=== PATIENT | female | born 1960 | race Two or more races ===

== ENCOUNTER 2024-06-01 15:07 | Inpatient (IN) | payer OTHER ==
[~2024-06-01] VITALS: Ht 154.9 cm; Wt 76.6 kg
[2024-06-01 15:35] LABS: Basophils # (auto) 0.1 10 ^3/uL (0-0.2); Basophils % (auto) 0.8 % (0.0-2.0); Eosinophils # (auto) 0.1 10 ^3/uL (0-0.8); Eosinophils % (auto) 1.4 % (0.0-7.0); Hematocrit 45.2 % (36.0-46.0); Hemoglobin 15.6 g/dL (12.2-16.2); Lymphocytes # (auto) 1.9 10 ^3/uL (0.4-5.4); Lymphocytes % (auto) 25.6 % (10.0-50.0); Mean Corpuscular Hgb Conc. 34.5 g/dL (32.0-36.0); Mean Corpuscular Volume 95.7 fL (80.0-100.0); Monocytes # (auto) 0.7 10 ^3/uL (0-1.3); Monocytes % (auto) 9.5 % (0.0-12.0); Neutrophils # (auto) 4.7 10 ^3/uL (1.6-8.6); Neutrophils % (auto) 62.7 % (37.0-80.0); Platelet Count (auto) 224 10^3/uL (140-450); Red Blood Cells 4.72 10^6/uL (4.0-5.20); Red Cell Distribution Width 14.5 % (11.8-14.3); White Blood Cell 7.5 10^3/uL (4.4-10.8)
[2024-06-01 15:50] VITALS: PULSE 126; RESP 13; O2SAT 93
[2024-06-01] MEDS: dilTIAZem 25 MG/5 ML VIAL IV ONE ×2 (15:53→17:12)
[2024-06-01 16:01] LABS: Alanine Aminotransferase 83 U/L (7-40); Albumin 4.7 g/dL (3.2-4.8); Alkaline Phosphatase 83 U/L (46-116); Anion Gap 8 (5-15); Aspartate Aminotransferase 33 U/L (13-40); BUN/Creatinine Ratio 15.1 (10.0-20.0); Blood Urea Nitrogen 16 mg/dL (9-23); Calcium 9.6 mg/dL (8.7-10.4); Carbon Dioxide 26 mmol/L (20-30); Chloride 110 mmol/L (98-107); Glucose 92 mg/dL (74-106); Potassium 3.9 mmol/L (3.5-5.1); Sodium 144 mmol/L (136-145)
[2024-06-01 16:02] LABS: Bilirubin, Total 0.9 mg/dL (0.2-1.0); Total Protein 6.9 g/dL (5.7-8.2)
[2024-06-01] MEDS: dilTIAZem 125mg/125ml BAG KIT 125 ML IV ONE (17:14)
[2024-06-01 18:49] LABS: Urine Bacteria FEW /hpf (None Seen); Urine Blood Negative /uL (Negative); Urine Clarity Clear (Clear); Urine Color Light-Yellow (Yellow); Urine Mucus FEW (None Seen); Urine Protein, UAD Negative (Negative); Urine Specific Gravity 1.016 (1.001-1.035); Urine Urobilinogen Normal (Negative); Urine WBC 2 /hpf (0 - 5); Urine pH 5.5 (5.0-9.0)
[2024-06-01] MEDS ORDERED: ONDANSETRON HCL 4 MG/2 ML VIAL IV PRN (20:30)
[2024-06-01] MEDS ORDERED: NITROGLYCERIN 0.4 MG SL TAB SL PRN (20:30)
[2024-06-01] MEDS ORDERED: MORPHINE SULFATE INJ 2 MG/ml SYRG IV PRN (20:30)
[2024-06-01] MEDS ORDERED: ACETAMINOPHEN 325 MG TAB PO PRN (20:30)
[2024-06-01] MEDS ORDERED: ENOXAPARIN SOD 80 MG/0.8ML SYRINGE SC SCH (20:30)
[2024-06-01] MEDS: cefTRIAXone 1GM/50ML D5W 50 ML IV ONE (20:55)
[2024-06-01] MEDS: ATORVASTATIN 20 MG TAB PO SCH (21:10)
[2024-06-01] MEDS: ASPirin 325 MG TAB PO ONE (21:10)
[2024-06-01] MEDS: ENOXAPARIN SOD 80 MG/0.8ML SYRINGE SC ONE (21:35)
[2024-06-01] MEDS ORDERED: hydrALAZINE HCL 20 MG/ML VL IV PRN (22:45)
[2024-06-02] MEDS: dilTIAZem 125mg/125ml BAG KIT 125 ML IV ONE (01:22)
[2024-06-02] MEDS: dilTIAZem 125mg/125ml BAG KIT 125 ML IV SCH (01:44)
[2024-06-02 04:24] LABS: Anion Gap 8 (5-15); Carbon Dioxide 25 mmol/L (20-30); Chloride 111 mmol/L (98-107); Potassium 3.6 mmol/L (3.5-5.1); Sodium 144 mmol/L (136-145)
[2024-06-02 04:25] LABS: Calcium 9.1 mg/dL (8.7-10.4)
[2024-06-02 04:30] LABS: BUN/Creatinine Ratio 13.6 (10.0-20.0); Blood Urea Nitrogen 12 mg/dL (9-23); Glucose 110 mg/dL (74-106); Triglycerides 95 mg/dL (< 150)
[2024-06-02 04:31] LABS: LDL Cholesterol 81 mg/dL (< 100)
[2024-06-02 04:32] LABS: Cholesterol 154 mg/dL (< 200); HDL Cholesterol 53 mg/dL (40-59)
[2024-06-02 07:40] VITALS: PULSE 72; O2SAT 96
[2024-06-02] MEDS: HYDROcodone-ACET 5/325MG TAB PO PRN (08:52)
[2024-06-02] MEDS: ENOXAPARIN SOD 80 MG/0.8ML SYRINGE SC SCH (10:06)
[2024-06-02] MEDS: FAMOTIDINE 20 MG TAB PO SCH (10:06)
[2024-06-02] MEDS: METOPROLOL SUCCINATE XL 50 MG TAB PO SCH (13:39)
[2024-06-02] MEDS: AMIODARONE HCL 200 MG TAB PO SCH (13:39)
[2024-06-02] MEDS: DIGOXIN (250MCG/ML) 2 ML AMPULE IV ONE (13:40)
[2024-06-02] MEDS: POTASSIUM CHL 20 Meq TABLET PO ONE (14:34)
[2024-06-02 16:00] VITALS: BP 135/99; PULSE 82; RESP 20; TEMP 98.2; O2SAT 92
[2024-06-02] MEDS ORDERED: LATA0.008 EACHEYE (19:34)
[2024-06-02] MEDS ORDERED: ATOR-47 PO (19:34)
[2024-06-02 20:00] VITALS: PULSE 92; PULSE 97; RESP 18; O2SAT 93
[2024-06-02 21:00] VITALS: BP 125/82; PULSE 92; RESP 20; TEMP 98.1; O2SAT 93
[2024-06-02] MEDS: MAGNESIUM OXIDE 400 MG TAB PO SCH (21:55)
[2024-06-03] VITALS (8 sets, daily range): BP systolic 126–159; BP diastolic 89–102; PULSE 89–108; RESP 16–22; TEMP 97.7–98.3; O2SAT 94–98
[2024-06-03 08:26] LABS: Chloride 109 mmol/L (98-107); Potassium 4.1 mmol/L (3.5-5.1); Sodium 144 mmol/L (136-145)
[2024-06-03 08:27] LABS: Anion Gap 6 (5-15); Carbon Dioxide 29 mmol/L (20-30)
[2024-06-03 08:28] LABS: Calcium 9.8 mg/dL (8.7-10.4)
[2024-06-03 08:32] LABS: Glucose 100 mg/dL (74-106)
[2024-06-03 08:33] LABS: BUN/Creatinine Ratio 9.9 (10.0-20.0); Blood Urea Nitrogen 11 mg/dL (9-23); Magnesium 2.2 mg/dL (1.6-2.6)
[2024-06-03] MEDS: RIVAROXABAN 20 MG TAB PO SCH (19:48)
[2024-06-03] MEDS: SACUBITRIL-VALSARTAN 24mg/26mg TAB PO SCH (21:56)
[2024-06-04] VITALS (7 sets, daily range): BP systolic 116–138; BP diastolic 71–97; PULSE 60–121; RESP 14–18; TEMP 97.3–98.2; O2SAT 92–96
[2024-06-04 06:09] LABS: Anion Gap 6 (5-15); Carbon Dioxide 28 mmol/L (20-30); Chloride 109 mmol/L (98-107); Sodium 143 mmol/L (136-145)
[2024-06-04 06:10] LABS: Calcium 9.6 mg/dL (8.7-10.4)
[2024-06-04 06:15] LABS: BUN/Creatinine Ratio 10.8 (10.0-20.0); Basophils # (auto) 0.1 10 ^3/uL (0-0.2); Basophils % (auto) 0.9 % (0.0-2.0); Blood Urea Nitrogen 11 mg/dL (9-23); Eosinophils # (auto) 0.2 10 ^3/uL (0-0.8); Eosinophils % (auto) 3.1 % (0.0-7.0); Glucose 110 mg/dL (74-106); Hematocrit 49.9 % (36.0-46.0); Hemoglobin 17.2 g/dL (12.2-16.2); Lymphocytes # (auto) 1.1 10 ^3/uL (0.4-5.4); Lymphocytes % (auto) 17.4 % (10.0-50.0); Mean Corpuscular Hgb Conc. 34.5 g/dL (32.0-36.0); Mean Corpuscular Volume 95.5 fL (80.0-100.0); Monocytes # (auto) 0.7 10 ^3/uL (0-1.3); Monocytes % (auto) 10.5 % (0.0-12.0); Neutrophils # (auto) 4.3 10 ^3/uL (1.6-8.6); Neutrophils % (auto) 68.1 % (37.0-80.0); Nucleated Red Blood Cells % 0.1 %; Platelet Count (auto) 243 10^3/uL (140-450); Red Blood Cells 5.22 10^6/uL (4.0-5.20); Red Cell Distribution Width 14.7 % (11.8-14.3); White Blood Cell 6.3 10^3/uL (4.4-10.8)
[2024-06-04] MEDS ORDERED: RIV20T PO (16:05)
[2024-06-04] MEDS ORDERED: SACU1TAB PO (16:05)
[2024-06-04] MEDS ORDERED: AMIO200T33 PO (16:05)
[2024-06-04] MEDS ORDERED: METO25TA5 PO (16:05)
== END 2024-06-04 17:25 | disposition home or self-care (01) | DRG 308 ==
LOC: ER 15:07 → OVERFLOW 20:27 → TELE-CENTR 06-02 15:52
PROVIDERS: ADMIT Nurse Practitioner Family; ATTEND Nurse Practitioner Family
DX: I48.20 Chronic atrial fibrillation, unspecified (principal); I50.23 Acute on chronic systolic (congestive) heart failure; E78.5 Hyperlipidemia, unspecified; J45.909 Unspecified asthma, uncomplicated; E66.9 Obesity, unspecified; I11.0 Hypertensive heart disease with heart failure; Z88.6 Allergy status to analgesic agent; Z68.31 Body mass index [BMI] 31.0-31.9, adult; Z87.891 Personal history of nicotine dependence; Q12.0 Congenital cataract; Z79.899 Other long term (current) drug therapy
CPT/HCPCS: 36415; 71045; 80048; 80053; 80061; 81001; 83735; 83880; 84443; 84484; 85025; 93005; 93306; 99291; G0378

== ENCOUNTER 2024-08-21 11:20 | Emergency (ER) | payer OTHER ==
[~2024-08-21] VITALS: Ht 154.9 cm; Wt 75.7 kg
[~2024-08-21 11:20] MED LIST: AMIO200T33 PO; ATOR-47 PO; LATA0.008 EACHEYE; METO25TA5 PO; RIV20T PO; SACU1TAB PO
--- NOTE | 2024-08-21 11:53 | ED.PDOC ---
Musculoskeletal HPI Comments A 63 YEAR OLD FEMALE PRESENTS TO THE ED WITH COMPLAINT OF LEFT FOOT PAIN STATUS POST FALL. PATIENT STATES THAT SHE ACCIDENTALLY TRIPPED OVER HER DOG YESTERDAY NIGHT CAUSING HER TO TWIST HER LEFT FOOT. PATIENT REPORTS HE IS NOW EXPERIENCING LEFT FOOT PAIN AND BRUISING. PATIENT WAS ABLE TO WALK AND BEAR WEIGHT WITH A STABLE GAIT. PATIENT DENIES HEAD INJURY, NECK INJURY, LOC, FEVER, CHILLS, SHORTNESS OF BREATH, CHEST PAIN, ABDOMINAL PAIN, NAUSEA, VOMITING, HEADACHE, OR OTHER COMPLAINTS. NO OTHER SYMPTOMS OR MODIFYING FACTORS AT THIS TIME. PATIENT IS ALERT, ORIENTED X 4, AND HAS STEADY GAIT. Chief Complaint: Lower Extremity Time Seen by MD: 11:27 Primary Care Provider: MANDO Tyler Notes: Nurses Notes, Medications, Allergies Allergies: Coded Allergies: NO KNOWN ALLERGIES (Unverified , 06/01/24) Home Meds Active Scripts Rivaroxaban (Xarelto Tablet) 20 Mg Tb, 20 MG PO QPM, #90 TAB Prov:JOSE DAVID KUMAR MD 06/04/24 Sacubitril-Valsartan (Entresto 24-26 mg) 1 Tab Tab, 1 TAB PO BID, #90 TAB Prov:JOSE DAVID KUMAR MD 06/04/24 Metoprolol Tartrate (Metoprolol Tartrate) 25 Mg Tab, 1 TAB PO BID, #60 TAB 1 Refill Prov:JOSE DAVID KUMAR MD 06/04/24 Amiodarone Hcl (Amiodarone Hcl) 200 Mg Tab, 2 TAB PO BID, #90 TAB Prov:JOSE DAVID KUMAR MD 06/04/24 Reported Medications Atorvastatin Calcium (ATORVASTATIN CALCIUM) 80 Mg Tab, 1 TAB PO DAILY 06/02/24 Latanoprost (LATANOPROST) 0.005 % EBONI Sierra 06/02/24 Information Source: Patient Mode of Arrival: Ambulatory Location: Left Extremity Location: Foot Timing: Days Prehospital treatment: None Severity: Moderate Able to Move Extremity: Yes Bear Weight: Fully Pain: Moderate Mechanism: Twisting Circumstances: Fall Onset of Symptoms: After Trauma Symptoms: Pain DVT Risk Factors: NONE Last Tetanus: UTD, Unknown Associated signs and symptoms: Foot pain Past Medical History PAST MEDICAL HISTORY: AFIB, HTN Surgical History: Denies all surgeries TELLER History: No Pertinent TELLER History Family History Family History: Reviewed,noncontributory to illness Social History Smoker: Non-Smoker Alcohol: Denies ETOH Use Drugs: Denies Drug Use Lives In: Home Constitutional: denies: chills, diaphoresis, fatigue, fever, malaise, sweats, weakness, others EENTM: denies: blurred vision, double vision, ear bleeding, ear discharge, ear drainage, ear pain, ear ringing, eye pain, eye redness, hearing loss, mouth pain, mouth swelling, nasal discharge, nose bleeding, nose congestion, nose pain, photophobia, tearing, throat pain, throat swelling, voice changes, others Respiratory: denies: cough, hemoptysis, orthopnea, SOB at rest, shortness of breath, SOB with excertion, stridor, wheezing, others Cardiovascular: denies: chest pain, dizzy spells, diaphoresis, Dyspnea on exertion, edema, irregular heart beat, left arm pain, lightheadedness, palpitations, PND, syncope, others Gastrointestinal: denies: abdomen distended, abdominal pain, blood streaked bowels, constipated, diarrhea, dysphagia, difficulty swallowing, hematemesis, melena, nausea, poor appetite, poor fluid intake, rectal bleeding, rectal pain, vomiting, others Genitourinary: denies: abnormal vagina bleeding, burning, dyspareunia, dysuria, flank pain, frequency, hematuria, incontinence, pain, , vagina discharge, urgency, others Neurological: denies: dizziness, fainting, headache, left sided numbness, left sided weakness, numbness, paresthesia, pre-existing deficit, right sided numbness, right sided weakness, seizure, speech problems, tingling, tremors, weakness, others Musculoskeletal: reports: joint pain, others (LEFT FOOT PAIN AND BRUISING); denies: back pain, gout, joint swelling, muscle pain, muscle stiffness, neck pain Integumetry: reports: bruises (LEFT FOOT. ); denies: change in color, change in hair/nails, dryness, laceration, lesions, lumps, rash, wounds, others Allergic/Immunocompromised: denies: Difficulty Healing, Frequent Infections, Hives, Itching, others Hematologic/Lymphatic: denies: anemia, blood clots, easy bleeding, easy bruising, swollen glands, others Endocrine: denies: excessive hunger, excessive sweating, excessive thirst, excessive urination, flushing, intolerance to cold, intolerance to heat, unexplained weight gain, unexplained weight loss, others Psychiatric: denies: anxiety, bipolar disorder, depression, hopeless, panic disorder, schizophrenia, sleepless, suicidal, others All Other Systems: Reviewed and Negative Physical Exam General Appearance: No Apparent Distress, Normal HEENT: Normal ENT Inspection, PERRL/EOMI, Pharynx Normal, TMs Normal Neck: Full Range of Motion, Non-Tender, Normal, Normal Inspection Respiratory: Chest Non-Tender, Lungs Clear, No Accessory Muscle Use, No Respiratory Distress, Normal Breath Sounds Cardiovascular: No Edema, No JVD, No Murmur, No Gallop, Normal Peripheral Pulses, Regular Rate/Rhythm Breast Exam: Deferred Gastrointestinal: No Organomegaly, Non Tender, No Pulsatile Mass, Normal Bowel Sounds, Soft Genitalia: Deferred Pelvic: Deferred Rectal: Deferred Extremities: No calf tenderness, Normal capillary refill, Normal range of motion, No pedal edema, Tender (WITH MILD SWELLING AND CONTUSION ON LEFT DORSAL FOOT, NO BONY TENDERNESS AND DEFORMITY. ) Musculoskeletal : Apperance: Normal Neurologic: Alert, meat wrapper II-XII nml as Tested, No Motor Deficits, Normal Affect, Normal Mood, No Sensory Deficits Cerebellar Function: Normal Reflexes: Normal Skin: Bruises (ON LEFT LATERAL DORSAL FOOT. ), Dry, Normal Color, Warm Peripheral Pulses: 2+ carotid (R), 2+ carotid (L), 2+ dorsalis pedis (R), 2+ dorsalis pedis (L) Lymphatic: No Adenopathy Was a procedure done? Was a procedure done?: No Differential Diagnosis EXT Differential Diagnosis: Fracture, Sprain, Dislocation, Contusion, Strain, Bursitis X-Ray, Labs, Meds, VS Vital Signs Date Time Temp Pulse Resp B/P (MAP) Pulse Ox O2 Delivery O2 Flow Rate FiO2 08/21/24 11:32 98.1 87 18 137/75 (95) 96 XY L FOOT 3 VIEW XRAY, INDICATION: FALL TECHNICAL DATA: Frontal, oblique and lateral views were obtained of the left foot. COMPARISON: None FINDINGS: No fracture is identified. Joint spaces are maintained. Alignment is anatomic. The hallux sesamoids appear normal. Soft tissues are within normal limits. IMPRESSION: No acute fracture or dislocation of the left foot. ATED BY: MILO PIERCE MD DICTATED DATE/TIME: 08/21/24 120 SIGNED BY: MILO PIERCE MD SIGNED DATE/TIME: 08/21/24 1201 CC: X-Ray, Labs, Meds, VS Comment EXTERNAL NOTES: NONE LABS ORDERED: NONE REVIEWED AND INTERPRETED RESULTS: NONE IMAGING ORDERED: XR FOOT LT INDEPENDENT HISTORIANS: PATIENT'S /SPOUSE PATIENT'S CASE AND RESULTS HAVE BEEN DISCUSSED WITH THE ED ATTENDING PHYSICIAN AND THEY AGREE WITH MY PLAN OF CARE. I HAVE DISCUSSED IMAGING AND LAB RESULTS WITH PATIENT AND HAVE INSTRUCTED THEM TO FOLLOW UP WITH THEIR PCP IN 1-2 DAYS. THE PATIENT FULLY UNDERSTANDS THEIR RESULTS AND ARE AWARE THEY NEED TO FOLLOW UP WITH THEIR PCP FOR FURTHER EVALUATION IF THEIR SYMPTOMS PERSIST. Images Reviewed?: Images reviewed and evaluated by me Time of 1ST Reevaluation: 12:20 Reevaluation 1ST: Improved Patient Education/Counseling: Diagnosis, Treatment, Need For Follow Up Family Education/Counseling: Diagnosis, Treatment, Need For Follow Up Medical Screening: No EMC Exist At This Time Departure 1 Departure Time of Disposition: 12:20 Impression: Primary Impression: Sprain of left foot Qualified Codes: S93.602A - Unspecified sprain of left foot, initial en counter Additional Impressions: Contusion of left foot Qualified Codes: S90.32XA - Contusion of left foot, initial encounter Status post fall Disposition: 01 HOME / SELF CARE / HOMELESS Condition: Stable Additional Instructions: FOLLOW-UP WITH PCP IN 1 TO 2 DAYS. TAKE MEDICATIONS PRESCRIBED. RETURN TO ED FOR ANY NEW OR WORSENING SYMPTOMS. Discharged With: Self, Spouse Critical Care Note Critical Care Time?: No Stability Stability form required: No I personally scribed for INGRID MATTHEWS ([email or web address]) on 08/21/24 at 11:53. Electronically submitted by Paulo Tejeda ([email or web address]). I personally scribed for INGRID MATTHEWS ([email or web address]) on 08/21/24 at 12:07. Electronically submitted by Paulo Tejeda ([email or web address]). INGRID MATTHEWS Aug 21, 2024 11:53
--- NOTE | 2024-08-21 12:03 | DVH ---
XY L FOOT 3 VIEW XRAY, INDICATION: FALL TECHNICAL DATA: Frontal, oblique and lateral views were obtained of the left foot. COMPARISON: None FINDINGS: No fracture is identified. Joint spaces are maintained. Alignment is anatomic. The hallux sesamoids a ppear normal. Soft tissues are within normal limits. IMPRESSION: No acute fracture or dislocation of the left foot.
[2024-08-21 12:15] VITALS: BP 137/75; PULSE 87; RESP 18; TEMP 98.1; O2SAT 96
== END 2024-08-21 12:33 | disposition home or self-care (01) ==
LOC: ER 11:20
DX: S93.692A Other sprain of left foot, initial encounter (principal); S90.32XA Contusion of left foot, initial encounter; I10 Essential (primary) hypertension; I48.91 Unspecified atrial fibrillation; Z79.899 Other long term (current) drug therapy; Z98.890 Other specified postprocedural states; X50.1XXA Overexertion from prolonged static or awkward postures, initial encounter; Y93.K1 Activity, walking an animal; Y92.89 Other specified places as the place of occurrence of the external cause; Y99.8 Other external cause status
CPT/HCPCS: 73630